=== PATIENT | female | born 1940 | race Caucasian/White ===

== ENCOUNTER 2022-04-08 03:09 | Emergency (ER) | payer MEDICARE, OTHER ==
[~2022-04-08 03:09] MED LIST: ANTIVERT25 MG PO; ATENOLOL25 MG PO; ATORVASTATIN CA20 MG PO; IMODIUM2 MG PO; NITROQUIK SL0.4 MG SL; NORVASC2.5 MG PO; PRINIVIL20 MG PO; PROTONIX 40MG T40 MG PO
[2022-04-08 03:29] LABS: BASOPHIL 0.3 % (0-2); EOSINOPHIL 0.2 % (0-7); HCT 39.1 % (37.0-47.0); HGB 13.1 g/dl (12.5-16.0); LYMPHOCYTE 21.9 % (15-48); MCH 33.1 pg (25.0-31.0); MCHC 33.5 g/dL (32.0-36.0); MCV 98.7 fL (78.0-100.0); MONOCYTE 7.4 % (0-12); MPV 9.6 fL (6.0-9.5); NEUTROPHIL 68.9 % (41-80); NRBC 0; PLT 391 K/uL (150-400); RBC 3.96 M/uL (4.20-5.40)
[2022-04-08 03:38] LABS: INR 1.06 (0.9-1.2); PROTHROMBIN TIME 13.2 SECONDS (11.8-13.4)
[2022-04-08 03:47] LABS: ALBUMIN 3.5 g/dL (3.4-5.0); BILIRUBIN - TOTAL 0.7 mg/dL (0.2-1.0); BUN/CREAT RATIO (CALC) 28.3 RATIO; CREATININE 0.92 mg/dL (0.51-0.95); GLOBULIN (CALCULATION) 3.4 g/dL; POTASSIUM 3.6 mmol/L (3.5-5.1); TOTAL PROTEIN 6.9 g/dL (6.4-8.2)
[2022-04-08] MEDS ORDERED: METRONIDAZOLE500 MG PO (09:21)
[2022-04-08] MEDS ORDERED: PEPCID AC20 MG PO (09:21)
== END 2022-04-08 11:33 | disposition home or self-care (01) ==
LOC: FER 03:09
PROVIDERS: Internal Medicine
DX: K52.9 Noninfective gastroenteritis and colitis, unspecified (principal); R07.89 Other chest pain; I10 Essential (primary) hypertension; Z88.5 Allergy status to narcotic agent
CPT/HCPCS: 36415; 71045; 80053; 83605; 83690; 83880; 84145; 84484; 85025; 85610; 85730; 87040; 93005; J1170; J2405

== ENCOUNTER → 2022-05-27 | Day surgery (SDC) | payer MEDICARE, OTHER ==
[~2022-05-27] VITALS: Ht 154.9 cm; Wt 59.0 kg
[~2022-05-27] MED LIST changes: +ASPIRIN EC81 MG PO; +CALCIUM 600 +1 EAC3 PO; +CENTRUM SILVER1 EAC4 PO; +FIBERCON625 MG PO; +GLUCOSAMINE HC500 MG PO; +LOVAZA1 GM PO; +METRONIDAZOLE500 MG PO; +PEPCID AC20 MG PO
== END | disposition home or self-care (01) ==
LOC: FAS 07:00
DX: K52.9 Noninfective gastroenteritis and colitis, unspecified (principal); K63.5 Polyp of colon; K31.9 Disease of stomach and duodenum, unspecified; K57.30 Diverticulosis of large intestine without perforation or abscess without bleeding; K64.8 Other hemorrhoids; K21.9 Gastro-esophageal reflux disease without esophagitis; I25.10 Atherosclerotic heart disease of native coronary artery without angina pectoris; E78.5 Hyperlipidemia, unspecified; I10 Essential (primary) hypertension; Z88.5 Allergy status to narcotic agent; Z87.891 Personal history of nicotine dependence
CPT/HCPCS: J1610; J2704; J7120

== ENCOUNTER 2022-07-06 14:08 | Emergency (ER) | payer MEDICARE, OTHER ==
[2022-07-06 15:57] LABS: BASOPHIL 0.2 % (0-2); EOSINOPHIL 0.2 % (0-7); HCT 36.1 % (37.0-47.0); HGB 12.3 g/dl (12.5-16.0); LYMPHOCYTE 13.8 % (15-48); MCH 33.4 pg (25.0-31.0); MCHC 34.1 g/dL (32.0-36.0); MCV 98.1 fL (78.0-100.0); MONOCYTE 5.5 % (0-12); MPV 10.3 fL (6.0-9.5); NEUTROPHIL 79.5 % (41-80); NRBC 0; PLT 313 K/uL (150-400); RBC 3.68 M/uL (4.20-5.40); RDW 12.1 % (11.5-14.0)
[2022-07-06 16:04] LABS: INR 1.02 (0.9-1.2); PROTHROMBIN TIME 13.1 SECONDS (11.9-13.9); PTT 23.3 SECONDS (24.9-34.6)
[2022-07-06 16:33] LABS: ALBUMIN 3.6 g/dL (3.4-5.0); BILIRUBIN - TOTAL 0.4 mg/dL (0.2-1.0); BUN/CREAT RATIO (CALC) 26.7 RATIO; CREATININE 0.86 mg/dL (0.51-0.95); GLOBULIN (CALCULATION) 3.2 g/dL; POTASSIUM 3.9 mmol/L (3.5-5.1); TOTAL PROTEIN 6.8 g/dL (6.4-8.2)
== END 2022-07-06 19:20 | disposition other institution (70) ==
LOC: FER 14:08
PROVIDERS: Emergency Medicine
DX: R07.89 Other chest pain (principal); I10 Essential (primary) hypertension; Z88.5 Allergy status to narcotic agent; Z79.899 Other long term (current) drug therapy
CPT/HCPCS: 36415; 71046; 80053; 82553; 84484; 85025; 85610; 85730; 93005